=== PATIENT | male | born 1950 | race American Indian/Alaskan Native ===

== ENCOUNTER 2017-01-24 09:24 | Observation (INO) | payer BC ==
--- NOTE | 2017-01-24 09:53 | ED PDOC ---
Arrival/HPI - General Chief Complaint: Chest Pain Time Seen by Provider: 01/24/17 09:27 Historian: Patient - History of Present Illness Narrative History of Present Illness (Text): 01/24/17 09:50 66yr old male presents today with left sided chest pain that started 1 hour prior to arrival. pt describes the pain as a dull ache that started after getting out of the shower. pt denies SOb. pt states the pain radiates from the left axilla to the anterior chest. no fever/chills. no cough. denies palpitations. denies dizziness or weakness. no headaches. no abdominal pain. no n/v/d. pt states pain as slightly improved but remains present currently. no other complaints. Time/Duration: 1 hour Symptom Onset: Sudden Symptom Course: Improving Quality: Aching, Dullness Severity Level: 5 Past Medical History - Provider Review Nursing Documentation Reviewed: Yes - Travel History Have you recently traveled outside [place] w/in the past 3 mons?: No - Infectious Disease Hx of Infectious Diseases: None - Pulmonary Hx Respiratory Disorders: No - Neurological Hx Neurological Disorder: No - Endocrine/Metabolic Hx Endocrine Disorders: No - Hematological/Oncological Hx Blood Disorders: No - Psychiatric Hx Substance Use: No - Anesthesia Hx Anesthesia: Yes Hx Anesthesia Reactions: No Hx Malignant Hyperthermia: No Family/Social History - Physician Review Nursing Documentation Reviewed: Yes Family/Social History: Unknown Family HX Smoking Status: Never Smoked Hx Alcohol Use: Yes (beer) Hx Substance Use: No Allergies/Home Meds Allergies/Adverse Reactions: Allergies No Known Allergies Allergy (Verified 01/24/17 09:48) Home Medications: Home Meds Medication Instructions Recorded Confirmed No Known Home Med 01/24/17 01/24/17 Review of Systems - Review of Systems Constitutional: absent: Fatigue, Fevers Eyes: absent: Vision Changes, Photophobia, Eye Pain Respiratory: absent: SOB, Cough Cardiovascular: Chest Pain. absent: Palpitations, Syncope Gastrointestinal: absent: Abdominal Pain, Nausea, Vomiting Genitourinary Male: absent: Dysuria Musculoskeletal: absent: Arthralgias Skin: absent: Rash, Pruritis Neurological: absent: Headache, Dizziness Endocrine: absent: Diaphoresis Psychiatric: absent: Anxiety, Depression Physical Exam Vital Signs Reviewed: Yes Vital Signs Temp Pulse Resp BP Pulse Ox 01/24/17 13:27 76 200/116 H 01/24/17 13:17 51 L 18 173/90 H 01/24/17 10:57 51 L 17 173/90 H 98 01/24/17 09:39 98.2 F 63 17 184/97 H 97 Temperature: Afebrile Blood Pressure: Hypertensive Pulse: Regular Respiratory Rate: Normal Appearance: Positive for: Well-Appearing, Non-Toxic, Comfortable Pain Distress: None Mental Status: Positive for: Alert and Oriented X 3 - Systems Exam Head: Present: Atraumatic Mouth: Present: Moist Mucous Membranes Neck: Present: Normal Range of Motion Respiratory/Chest: Present: Clear to Auscultation, Good Air Exchange. No: Respiratory Distress, Accessory Muscle Use Cardiovascular: Present: Regular Rate and Rhythm, Normal S1, S2. No: Tachycardic Abdomen: No: Tenderness, Distention, Rebound, Guarding Back: Present: Normal Inspection Upper Extremity: Present: Normal ROM Lower Extremity: Present: Normal ROM Neurological: Present: GCS=15 Skin: Present: Warm, Dry, Normal Color. No: Rashes Psychiatric: Present: Alert, Oriented x 3 Medical Decision Making ED Course and Treatment: 01/24/17 09:55 pt with chest pain ; hypertensive on initial vitals. cbc; wnl cmp; wnl trop: wnl ekg; NSR at 65b/m no st elevations, normal axis, normal intervals; reviewed by dr. lizama. cxr: FINDINGS: LUNGS: No active pulmonary disease. PLEURA: A mammilated right hemidiaphragm is appreciated. No significant pleural effusion identified, no pneumothorax apparent. CARDIOVASCULAR: Probable frontal magnification of the cardiac silhouette. Mild cardiomegaly is not completely excluded. OSSEOUS STRUCTURES: No significant abnormalities. VISUALIZED UPPER ABDOMEN: Normal. OTHER FINDINGS: None. IMPRESSION: No acute pulmonary disease identified. Probable technical magnification of the cardiac silhouette. Clinically correlate further. No pulmonary vascular derangement. asa 325mg po nitro past applied tylenol PO pt reassessment; pt feeling better after medications; remains hypertensive without prior hx of HTN. case discussed with Dr. busch will Admit observational status to Tele for chest pain r/o acs. case discussed with resident dr vance impression; chest pain Admit observational status to tele; Dr. busch 01/24/17 14:06 - Lab Interpretations Lab Results: 01/24/17 09:40 01/24/17 09:40 Lab Results 01/24/17 10:40: Urine Color Yellow, Urine Appearance Clear, Urine pH 7.5, Ur Specific [place] 1.010, Urine Protein Negative, Urine Glucose (UA) Negative, Urine Ketones Negative, Urine Blood Negative, Urine Nitrate Negative, Urine Bilirubin Negative, Urine Urobilinogen 0.2, Ur Leukocyte Esterase Negative 01/24/17 09:40: Triglycerides 98, Cholesterol 152, LDL Cholesterol Direct 92, HDL Cholesterol 29 01/24/17 09:40: PT 12.4, INR 1.12 H, APTT 27.7 01/24/17 09:40: Sodium 141, Potassium 4.1, Chloride 104, Carbon Dioxide 29, Anion Gap 12, BUN 17, Creatinine 1.1, Est GFR ( Amer) > 60, Est GFR (Non- Af Amer) > 60, Random Glucose 101, Calcium 9.3, Magnesium 2.1, Total Bilirubin 0.8, AST 37, ALT 36, Alkaline Phosphatase 47, Lactate Dehydrogenase 525, Total Creatine Kinase 305 H, CK-MB (CK-2) 3.2, CK-MB (CK-2) % Cancelled, Troponin I < 0.01, Total Protein 7.5, Albumin 4.1, Globulin 3.4, Albumin/Globulin Ratio 1.2 01/24/17 09:40: WBC 4.6, RBC 4.31, Hgb 14.4, Hct 40.5 L, MCV 94.0, MCH 33.4, MCHC 35.6, RDW 12.8, Plt Count 185, MPV 9.4, Gran % 40.2 L, Lymph % (Auto) 46.2 H, [place] % (Auto) 9.0 H, Eos % (Auto) 4.4, Baso % (Auto) 0.2, Gran # 1.84, Lymph # 2.1, [place] # 0.4, Eos # 0.2, Baso # 0.01 - RAD Interpretation Radiology Orders: 01/24/17 09:36 CHEST PORTABLE [RAD] Stat - Medication Orders Current Medication Orders: Aspirin (Aspirin Chewable) 81 mg PO DAILY [facility] Atorvastatin Calcium (Lipitor) 40 mg PO DIN [facility] Enoxaparin Sodium (Lovenox) 40 mg SC DAILY [facility] PRN Reason: Protocol Losartan Potassium (Cozaar) 50 mg PO DAILY [facility] Last Admin: 01/24/17 13:27 Dose: 50 mg MAR Pulse and Blood Pressure Document 01/24/17 13:27 IT (Rec: 01/24/17 13:27 IT [id number]) Pulse Pulse Rate (60-90 beats/min) 76 Blood Pressure Blood Pressure (100/60-150/90 mm Hg) 200/116 Nitroglycerin (Nitro-Bid 2% Oint) 0 ea TOP Q6 SE Pantoprazole Sodium (Protonix Inj) 40 mg IVP DAILY SE Discontinued Medications Acetaminophen (Tylenol 325mg Tab) 975 mg PO STAT STA Stop: 01/24/17 12:08 Last Admin: 01/24/17 12:25 Dose: 975 mg MAR Pain/Vitals Document 01/24/17 12:25 IT (Rec: 01/24/17 12:26 IT [id number]) Pain Reassessment Is This A Pain ReAssessment? No Sleep Is patient sleeping during reassessment? 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 Ulcer: No History Surgical Site Infection Following: None - Disposition Have Diagnosis and Disposition been Completed?: Yes Diagnosis: Chest pain Disposition: HOSPITALIZED Disposition Time: 12:15 Patient Plan: Observation Patient Problems: Current Active Problems Problem Status Onset Chest pain Acute Condition: FAIR
[2017-01-24 09:54] LABS: BASO # 0.01 K/mm3 (0.0-2.0); BASO % 0.2 % (0.0-3.0); EOS # 0.2 (0.0-0.7); EOS % 4.4 % (1.5-5.0); GRAN # 1.84 (1.4-6.5); GRAN % 40.2 % (50.0-68.0); HEMATOCRIT 40.5 % (42.0-52.0); LYMPH # 2.1 (1.2-3.4); LYMPH % 46.2 % (22.0-35.0); MEAN CORPUSCULAR HEMOGLOBIN 33.4 pg (25.0-35.0); MEAN CORPUSCULAR HGB CONC 35.6 g/dl (31.0-37.0); MEAN PLATELET VOLUME 9.4 fl (7.0-11.0); MONO # 0.4 (0.1-0.6); RED CELL DISTRIBUTION WIDTH 12.8 % (11.5-14.5); WHITE BLOOD COUNT 4.6 10^3/ul (4.5-11.0)
[2017-01-24 10:01] LABS: ALB/GLOB RATIO 1.2 (1.1-1.8); ALKALINE PHOSPHATASE 47 U/L (38-126); ALT/SGPT 36 U/L (7-56); AST/SGOT 37 U/L (17-59); BILIRUBIN,TOTAL 0.8 mg/dL (0.2-1.3); BLOOD UREA NITROGEN 17 mg/dL (7-21); CALCIUM 9.3 mg/dL (8.4-10.5); CARBON DIOXIDE 29 mmol/L (21-33); CHLORIDE 104 mmol/L (98-107); GFR AFRICAN-AMERICAN > 60; GLUCOSE,RANDOM 101 mg/dL (70-110); MAGNESIUM 2.1 mg/dL (1.7-2.2); POTASSIUM 4.1 mmol/L (3.6-5.0); SODIUM 141 mmol/L (132-148); TOTAL PROTEIN 7.5 g/dL (5.8-8.3)
[2017-01-24 10:18] LABS: TROPONIN I < 0.01 ng/mL
[2017-01-24 10:27] LABS: INR 1.12 (0.93-1.08); PARTIAL THROMBOPLASTIN TIME 27.7 Seconds (25.1-36.5)
--- NOTE | 2017-01-24 10:53 | RAD ---
HISTORY: chest pain COMPARISON: No prior. FINDINGS: LUNGS: No active pulmonary disease. PLEURA: A mammilated right hemidiaphragm is appreciated. No significant pleural effusion identified, no pneumothorax apparent. CARDIOVASCULAR: Probable frontal magnification of the cardiac silhouette. Mild cardiomegaly is not completely excluded. OSSEOUS STRUCTURES: No significant abnormalities. VISUALIZED UPPER ABDOMEN: Normal. OTHER FINDINGS: None. IMPRESSION: No acute pulmonary disease identified. Probable technical magnification of the cardiac silhouette. Clinically correlate further. No pulmonary vascular derangement.
[2017-01-24 11:03] LABS: PH,URINE 7.5 (4.7-8.0); URINE APPEARANCE CLEAR (CLEAR); URINE BILIRUBIN NEGATIVE (NEGATIVE); URINE BLOOD NEGATIVE (NEGATIVE); URINE COLOR YELLOW (YELLOW); URINE GLUCOSE (UA) NEGATIVE (NEGATIVE); URINE KETONE NEGATIVE (NEGATIVE); URINE LEUKOCYTE ESTERASE NEGATIVE Leu/uL (NEGATIVE); URINE PROTEIN NEGATIVE mg/dL (<30 mg/dL); URINE UROBILINOGEN 0.2 E.U./dL (<1 E.U./dL)
[2017-01-24] MEDS ORDERED: Nitroglycerin 2% Ointment Foilpak UD TOP STA (12:06)
--- NOTE | 2017-01-24 13:20 | CP.PCM.HP ---
<Tracee Mccoy - Last Filed: 01/24/17 15:35> History of Present Illness - History of Present Illness History of Present Illness: PGY-2 H&P 66 year old male presents today with left sided chest pain that started this morning. Patient describes the pain as a constant, dull ache that started after getting out of the shower. Its located at the left axilla and radiates to the anterior chest and to the epigastric area. patient denies SOB, fevers, chills, diaphoresis. The pain lasted for about 30 minutes before he decided to come to the ED. He states he took an asa. He denies previous episodes. He denies cough, palpitations, dizziness, weakness, headaches, n&v. Patient states that he does get frequent headaches about multiple time per week, he usually takes asa. No other complaints. PMH: Denies PSH: bilateral inguinal hernia repair social history: former smoker quit 23 yo, occasional alcohol use, denies illicit drugs family history: brother- heart transplant, brother- lymphoma allergy: NKDA Home meds: denies Present on Admission - Present on Admission Any Indicators Present on Admission: No Review of Systems - Constitutional Constitutional: Headache. absent: Chills, Fatigue, Fever, Lethargy, Weakness - EENT Eyes: absent: Change in Vision Nose/Mouth/Throat: absent: Nasal Congestion, Nasal Discharge, Sore Throat - Cardiovascular Cardiovascular: Chest Pain. absent: Diaphoresis, Dyspnea, Leg Edema, Palpitations, Pedal Edema, Syncope - Respiratory Respiratory: absent: Cough, Dyspnea, Hemoptysis, Wheezing - Gastrointestinal Gastrointestinal: Abdominal Pain (epigastric). absent: Constipation, Diarrhea, Nausea, Vomiting - Genitourinary Genitourinary: absent: Difficulty Urinating, Dysuria, Hematuria - Musculoskeletal Musculoskeletal: absent: Arthralgias, Back Pain, Myalgias, Neck Pain, Numbness, Tingling - Integumentary Integumentary: absent: Pruritus, Rash, Skin Pain, Skin Ulcer, Sores, Wounds - Neurological Neurological: absent: Dizziness, Numbness, Headaches, Syncope, Weakness - Hematologic/Lymphatic Hematologic: absent: Easy Bleeding, Easy Bruising Past Patient History - Infectious Disease Hx of Infectious Diseases: None - Past Social History Smoking Status: Never Smoked - PULMONARY Hx Respiratory Disorders: No - NEUROLOGICAL Hx Neurological Disorder: No - ENDOCRINE/METABOLIC Hx Endocrine Disorders: No - HEMATOLOGICAL/ONCOLOGICAL Hx Blood Disorders: No - PSYCHIATRIC Hx Substance Use: No - SURGICAL HISTORY Hx Herniorrhaphy: Yes - ANESTHESIA Hx Anesthesia: Yes Hx Anesthesia Reactions: No Hx Malignant Hyperthermia: No Meds Allergies/Adverse Reactions: Allergies Allergy/AdvReac Type Severity Reaction Status Date / Time No Known Allergies Allergy Verified 01/24/17 09:48 Physical Exam - Constitutional Appears: Well, No Acute Distress - Head Exam Head Exam: ATRAUMATIC, NORMAL INSPECTION, NORMOCEPHALIC - Eye Exam Eye Exam: EOMI, Normal appearance - ENT Exam ENT Exam: Mucous Membranes Moist - Respiratory Exam Respiratory Exam: Clear to Auscultation Bilateral, NORMAL BREATHING PATTERN. absent: Rales, Rhonchi, Wheezes, Respiratory Distress, Stridor - Cardiovascular Exam Cardiovascular Exam: REGULAR RHYTHM, +S1, +S2. absent: Tachycardia, Diastolic murmur, Systolic Murmur - GI/Abdominal Exam GI & Abdominal Exam: Normal Bowel Sounds, Soft. absent: Distended, Firm, Guarding, Tenderness - Extremities Exam Extremities exam: Positive for: normal inspection. Negative for: pedal edema, tenderness - Back Exam Back exam: NORMAL INSPECTION - Neurological Exam Neurological exam: Alert, Oriented x3 - Skin Skin Exam: Dry, Intact, Normal Color, Warm Results - Vital Signs Recent Vital Signs: Last Vital Signs Temp 98.2 F 01/24/17 09:39 Pulse 51 L 01/24/17 10:57 Resp 17 01/24/17 10:57 BP 173/90 H 01/24/17 10:57 Pulse Ox 98 01/24/17 10:57 - Labs Result Diagrams: 01/24/17 09:40 01/24/17 09:40 Assessment & Plan - Assessment and Plan (Free Text) Assessment: 66 year old male presents today with left sided chest pain found to be hypertensive in ED. Plan: 1. chest pain - r/o ACS - trops negative times 1, trend trop - received asa and topical nitroglycerin in ED - urine drug screen - lipid panel - TSH, T4, T3 - repeat EKG - Echo - asa 81mg daily - lipior 40 daily - cardiology consulted 2. uncontrolled HTN - nitroglycerin - cozaar 50 daily - continue to monitor 3. history of frequent headaches - possible due to elevated BP - CT head prophlaxis DVT- lovenox GI- protonix <Erik Baltazar U - Last Filed: 02/16/17 10:59> Results - Vital Signs Recent Vital Signs: Last Vital Signs Temp 97.5 F L 01/25/17 12:00 Pulse 47 L 01/25/17 13:09 Resp 20 01/25/17 12:00 BP 180/100 H 01/25/17 13:09 Pulse Ox 99 01/25/17 05:55 - Labs Result Diagrams: 01/25/17 05:30 01/25/17 05:30 Attending/Attestation - Attestation I have personally seen and examined this patient.: Yes I have fully participated in the care of the patient.: Yes I have reviewed all pertinent clinical information: Yes Notes (Text): Please see my dictated notes.
[2017-01-24 13:21] VITALS: BMI 27.1
[2017-01-24 13:44] LABS: CHOLESTEROL 152 mg/dL (130-200)
[2017-01-24 14:08] LABS: T4 6.8 ug/dL (5.5-11.0)
[2017-01-24 14:22] LABS: T3 1.3 ng/mL (0.97-1.69); THYROID STIMULATING HORMONE 1.7 mIU/mL (0.46-4.68)
--- NOTE | 2017-01-24 14:24 | CT ---
PROCEDURE: CT HEAD WITHOUT CONTRAST. HISTORY: headaches COMPARISON: Head CT without contrast 01/06/2016. TECHNIQUE: Axial computed tomography images were obtained through the head/brain without intravenous contrast. Radiation dose: Total exam DLP = 775.01 mGy-cm. This CT exam was performed using one or more of the following dose reduction techniques: Automated exposure control, adjustment of the mA and/or kV according to patient size, and/or use of iterative reconstruction technique. FINDINGS: HEMORRHAGE: No intracranial hemorrhage. BRAIN: Limited chronic microangiopathy is reiterated in the periventricular spaces. No significant old changes appreciated in the supra or infratentorial parenchyma including throughout the brainstem. Corticomedullary differentiation is well delete preserved. VENTRICLES: Unremarkable. No hydrocephalus. CALVARIUM: Unremarkable. PARANASAL SINUSES: The visualized right maxillary sinus completely opacified in the interval. MASTOID AIR CELLS: Unremarkable as visualized. No inflammatory changes. OTHER FINDINGS: None. IMPRESSION: Stable minimal chronic microangiopathy. No definite acute intracranial findings by standard CT criteria. Follow-up CT or MRI are available if clinically warranted. Prominent right maxillary sinusitis.
[2017-01-24] MEDS: Enoxaparin 40 mg Syringe SC SCH (15:25)
[2017-01-24 16:15] LABS: TROPONIN I 0.02 ng/mL
[2017-01-24] MEDS: Nitroglycerin 2% Ointment Foilpak UD TOP SCH (18:14)
[2017-01-24] MEDS ORDERED: Nitroglycerin 2% Ointment Foilpak UD TOP SCH (19:00)
[2017-01-24 21:48] LABS: TROPONIN I 0.03 ng/mL
[2017-01-25 00:59] LABS: TROPONIN I 0.02 ng/mL
[2017-01-25] MEDS: Nitroglycerin 2% Ointment Foilpak UD TOP SCH ×4 (01:23→11:22)
[2017-01-25 01:30] VITALS: RESP 20; O2SAT 99
--- NOTE | 2017-01-25 02:18 | HP ---
HISTORY OF PRESENT ILLNESS: The patient is a 66-year-old male presented with less than 12 hours complaint of left-sided chest pain, left axillary pain, started couple of hours before the patient came to the ER. The patient stated that the symptoms started while he was taking a shower associated with some burping but with persistent pain, so the patient came to the emergency room for evaluation. Pain scale was described as 4-5/10 to me, but according to the ER triage it was 7/10. The patient was seen by the physician credentialing assistant in the emergency room. The patient described the pain as heaviness,dull ache. It radiated to the left axilla and to the anterior left chest. REVIEW OF SYSTEMS: A 13 system review is as above. CODE STATUS: Full code. LIVING WILL ADVANCE DIRECTIVE: None. ALLERGIES: None. HEIGHT: 6 feet. WEIGHT: 200. BMI: 27. HOME MEDICATIONS: None. SOCIAL HISTORY: Denies alcohol dependence. Denies smoking. Denies drug use. Denies communicable transmissible disease. SOCIAL HISTORY: Only positive for beer drinking. OCCUPATIONAL HISTORY. 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 PAST MEDICAL HISTORY: The patient denies any history of cerebral infarct, denies any history of coronary artery disease, denies any history of myocardial infarction, denies any history of surgeries. The patient does admit to beer drinking. PAST MEDICAL HISTORY: According to the [facility] data; the patient has history of inguinal hernia surgery in 2000, history of degenerative joint disease, history of cervicalgia, history of diverticulosis of the colon on colonoscopy done in October 2015, history of colonoscopy, history of questionable rectal bleeding, history of diverticulosis of the colon, history of colonoscopy, and history of inguinal herniorrhaphy by Dr. Cheung. PHYSICAL EXAMINATION: VITAL SIGNS: Initially from the emergency room till now; T-max is afebrile; heart rate 63, 51, 76, 93 and 52 beats per minute; blood pressure 184/79, 173/90, 200/116, 166/93 and 157/84; respiration 17 to 18; O2 sat 98%-100%. GENERAL: The patient was seen lying in the bed. HEENT: Head: Normocephalic, atraumatic. HEENT examination shows pink conjunctivae. Anicteric sclerae. No oropharyngeal lesion. NECK: No neck rigidity. CHEST: Symmetrical. LUNG: Shows no rales, crackles or wheezing. CARDIOVASCULAR: S1 and S2. ABDOMEN: Soft. Positive bowel sound. GENITALIA: Male. RECTAL: Deferred. EXTREMITIES: Shows no pitting edema, no calf tenderness, no Homans sign. NEUROLOGICALLY: The patient is alert, awake, oriented x3. Cranial nerves II through XII intact. GAIT: Not tested. Motor strength is 5/5 upper and lower extremities. VASCULAR: Palpable pulses. DIAGNOSTICS: WBC 4.6, hemoglobin and hematocrit 14.4 and 40.0, platelets 185. PT and PTT 12.4 and 27.7. Sodium 141, potassium 4.1, chloride 104, CO2 of 29, anion gap 12, BUN 17, creatinine 1.1, GFR greater than 60, glucose 101, calcium 9.3, magnesium 2.1. LFTs are normal. CPK 305. Troponin 0.01, cholesterol 152, LDL 92, HDL 29, TSH 1.70, T4 is 6.8. Urinalysis; pH of 7.50, specific gravity 1.01, negative protein, negative glucose, negative blood, negative urobilinogen, urine drug screen negative. The patient's chest x-ray was done in the emergency room. The patient's chest x-ray was done in the emergency room, questionable cardiomegaly noted and questionable mammillated right hemidiaphragm noted. CT head was done, which shows microangiopathy of the brain in the periventricular white matter. Right maxillary sinusitis noted. EKG shows sinus rhythm, ST changes and T-wave abnormality, sinus rhythm, sinus bradycardia, flattening of the T-wave in IV and V and lead II noted. The patient was seen in the emergency room by the ER physician credentialing assistant, the patient was given aspirin. The patient was given Tylenol. The patient was given Tylenol. The patient was given nitro paste 1 inch and aspirin 325 and the patient was advised to be admitted. CURRENT MEDICATIONS: Ecotrin 325 mg given in the ER. The patient will be started on Ecotrin 81 p.o. daily, Cozaar 50 mg daily, Lipitor 40 mg now and daily, Lovenox 40 mg subcu now and daily, nitro paste 1 inch q.6 hours, Protonix 40 mg daily. IMPRESSION: 1. Left-sided chest pain, dull ache, nonrelieving. 2. Sinus bradycardia. 3. Uncontrolled hypertension. 4. Headache, etiology undetermined. 5. Lymphocytosis, etiology undetermined. 6. Incidental lymphocytosis. 7. Elevated CPK, etiology undetermined. 8. Hypercholesterolemia with elevated LDL and decreased HDL. 9. Sinus bradycardia with nonspecific ST-T changes. 10. Lateral wall questionable ST-T changes. 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 12. Mild cardiomegaly. 13. Microangiopathy of the periventricular spaces. 14. Right maxillary sinusitis. 15. Hypertension. 16. History of frequent headache, etiology undetermined. PLAN: At this time, the patient has been admitted to telemetry observation, serial cardiac enzymes, repeat labs, CBC ordered. Cardiology consultation ordered. MRI of the brain has been ordered because of abnormal CAT scan. Repeat EKG ordered. Echo with Doppler ordered. Heart healthy diet ordered, out of bed ordered. All of the above the patient's condition, diagnoses, all details discussed with the patient. All questions and concerns answered to his satisfaction which he acknowledged and understand. I have explained to the patient about the details of his medical condition in very clear layman's language. The patient does understand need for further diagnostic therapeutic interventions which will be required. The patient also understand need for further cardiac testing and diagnostic therapeutic intervention which is required which has been explained to the patient in layman's language. All questions concerned answered. At present, the patient was seen and admitted to telemetry. Dictated and electronically signed, not read. Erik Baltazar MD
[2017-01-25 06:17] LABS: BASO # 0.02 K/mm3 (0.0-2.0); BASO % 0.4 % (0.0-3.0); EOS # 0.3 (0.0-0.7); EOS % 5.1 % (1.5-5.0); GRAN # 1.84 (1.4-6.5); GRAN % 37.7 % (50.0-68.0); LYMPH # 2.4 (1.2-3.4); MEAN CELL VOLUME 94.8 fl (80.0-105.0); MEAN CORPUSCULAR HEMOGLOBIN 32.7 pg (25.0-35.0); MEAN CORPUSCULAR HGB CONC 34.5 g/dl (31.0-37.0); MEAN PLATELET VOLUME 9.6 fl (7.0-11.0); MONO # 0.4 (0.1-0.6); MONO % 7.8 % (1.0-6.0); WHITE BLOOD COUNT 4.9 10^3/ul (4.5-11.0)
[2017-01-25 06:38] LABS: ALB/GLOB RATIO 1.2 (1.1-1.8); ALKALINE PHOSPHATASE 50 U/L (38-126); ALT/SGPT 42 U/L (7-56); AST/SGOT 34 U/L (17-59); BILIRUBIN,DIRECT 0.3 mg/dL (0.0-0.4); BILIRUBIN,TOTAL 0.7 mg/dL (0.2-1.3); BLOOD UREA NITROGEN 17 mg/dL (7-21); CALCIUM 9.1 mg/dL (8.4-10.5); CARBON DIOXIDE 32 mmol/L (21-33); CHLORIDE 104 mmol/L (95-110); GFR AFRICAN-AMERICAN > 60; GLUCOSE,RANDOM 94 mg/dL (70-110); MAGNESIUM 2.2 mg/dL (1.7-2.2); POTASSIUM 4.3 mmol/L (3.6-5.0); SODIUM 142 mmol/L (132-148); TOTAL PROTEIN 7.3 g/dL (5.8-8.3)
--- NOTE | 2017-01-25 07:50 | CP.PCM.PN ---
<Tracee Mccoy - Last Filed: 01/25/17 11:35> Subjective - Date & Time of Evaluation Date of Evaluation: 01/25/17 Time of Evaluation: 07:46 - Subjective Subjective: PGY-2 progress note Patient seen and examined at bedside. No acute distress. Patient states that overall he is feeling better. Patient denies any chest pain, shortness of breath. He states that he does have a headache. He denies abd pain, n&v, urinary symptoms. Objective - Vital Signs/Intake and Output Vital Signs (last 24 hours): Temp Pulse Resp BP Pulse Ox 97.7 F 51 L 20 151/94 H 99 01/25/17 05:55 01/25/17 05:55 01/25/17 05:55 01/25/17 05:55 01/25/17 05:55 Intake and Output: 01/25/17 01/25/17 06:59 18:59 Intake Total 140 Balance 140 - Medications Medications: Current Medications Aspirin (Aspirin Chewable) 81 mg PO DAILY [facility] Atorvastatin Calcium (Lipitor) 40 mg PO DIN [facility] Enoxaparin Sodium (Lovenox) 40 mg SC DAILY [facility] PRN Reason: Protocol Last Admin: 01/24/17 15:25 Dose: 40 mg Losartan Potassium (Cozaar) 50 mg PO DAILY [facility] Last Admin: 01/24/17 13:27 Dose: 50 mg Nitroglycerin (Nitro-Bid 2% Oint) 1 ea TOP Q6 [facility] Last Admin: 01/25/17 05:23 Dose: Not Given Pantoprazole Sodium (Protonix Inj) 40 mg IVP DAILY [facility] Last Admin: 01/24/17 15:26 Dose: 40 mg - Labs Labs: 01/25/17 05:30 01/25/17 05:30 PT 12.4 SECONDS (9.4-12.5) 01/24/17 09:40 INR 1.12 (0.93-1.08) H 01/24/17 09:40 APTT 27.7 Seconds (25.1-36.5) 01/24/17 09:40 - Constitutional Appears: Well, No Acute Distress - Head Exam Head Exam: ATRAUMATIC, NORMAL INSPECTION, NORMOCEPHALIC - Eye Exam Eye Exam: EOMI, Normal appearance - ENT Exam ENT Exam: Mucous Membranes Moist - Respiratory Exam Respiratory Exam: Clear to Ausculation Bilateral, NORMAL BREATHING PATTERN. absent: Rhonchi, Wheezes, Respiratory Distress - Cardiovascular Exam Cardiovascular Exam: REGULAR RHYTHM, +S1, +S2. absent: Tachycardia, Murmur - GI/Abdominal Exam GI & Abdominal Exam: Soft, Normal Bowel Sounds. absent: Distended, Firm, Guarding, Tenderness - Extremities Exam Extremities Exam: Normal Inspection. absent: Pedal Edema, Tenderness - Neurological Exam Neurological Exam: Alert, Awake, Oriented x3 - Skin Skin Exam: Dry, Intact, Normal Color, Warm Assessment and Plan - Assessment and Plan (Free Text) Assessment: 66 year old male presents today with left sided chest pain found to be hypertensive in ED. Plan: 1. chest pain - r/o ACS - improved - trops negative times 3 - received asa and topical nitroglycerin in ED - urine drug screen is negative - lipid panel within normal limits - TSH, T4, T3 within normal limits - Echo pending - asa 81mg daily - lipior 40 daily - cardiology consulted 2. uncontrolled HTN - nitroglycerin patch - cozaar 50 daily - continue to monitor 3. history of frequent headaches - possible due to elevated BP - CT head : stable minimal chronic microangiopathy, right maxillary sinusitis - MRI pending prophlaxis DVT- lovenox GI- protonix <Erik Baltazar U - Last Filed: 02/16/17 11:00> Objective - Vital Signs/Intake and Output Vital Signs (last 24 hours): Temp Pulse Resp BP Pulse Ox 97.5 F L 47 L 20 180/100 H 99 01/25/17 12:00 01/25/17 13:09 01/25/17 12:00 01/25/17 13:09 01/25/17 05:55 - Labs Labs: 01/25/17 05:30 01/25/17 05:30 PT 12.4 SECONDS (9.4-12.5) 01/24/17 09:40 INR 1.12 (0.93-1.08) H 01/24/17 09:40 APTT 27.7 Seconds (25.1-36.5) 01/24/17 09:40 Attending/Attestation - Attestation I have personally seen and examined this patient.: Yes I have fully participated in the care of the patient.: Yes I have reviewed all pertinent clinical information, including history, physical exam and plan: Yes Notes (Text): Please see my dictated notes.
[2017-01-25] MEDS: Enoxaparin 40 mg Syringe SC SCH (09:01)
--- NOTE | 2017-01-25 09:01 | CARD ---
APPROVED REPORT EKG Measurement Heart [id number] <Conclusion> Normal sinus rhythm with 1st degree AVB LAD NSSTW changes
--- NOTE | 2017-01-25 09:14 | CARD ---
APPROVED REPORT EKG Measurement Heart [id number] [place] [id number] <Conclusion> Sinus bradycardia with 1st degree AV block Nonspecific T wave abnormality LAD LVH by voltage Increased voltage c/w earlier ECG
[2017-01-25] MEDS ORDERED: Gadodiamide 287 MG/ML VIAL (15ML) IV ONE (10:31)
--- NOTE | 2017-01-25 11:28 | MRI ---
PROCEDURE: MRI BRAIN WITH AND WITHOUT CONTRAST HISTORY: ABN.CAT SCAN HEAD COMPARISON: CT of the head 01/24/2017 TECHNIQUE: Multiplanar, multisequence MR images of the brain were obtained with and without intravenous contrast enhancement. 15 cc of Omniscan FINDINGS: HEMORRHAGE: None DWI: No evidence of an acute or early subacute infarction. BRAIN PARENCHYMA: No mass,mass effect or edema. Mild chronic microvascular changes are seen ENHANCEMENT: No abnormal intracranial enhancement. VENTRICLES: Unremarkable. No hydrocephalus. CRANIUM: Unremarkable. ORBITS: Grossly unremarkable. PARANASAL SINUSES/MASTOIDS: There is opacification of the right maxillary sinus and the majority of the right-sided ethmoid air cells and right frontal sinus. There is obstruction of the right ostiomeatal unit. There is a bilateral garrett bullosa variation. The left-sided sinuses are clear. The sphenoid is clear VASCULAR SYSTEM: Skull base flow voids intact. OTHER FINDINGS: None . IMPRESSION: Right-sided sinusitis involving the maxillary frontal and ethmoid sinuses. No acute intracranial findings
[2017-01-25 12:01] VITALS: TEMP 97.5
[2017-01-25 13:11] VITALS: BP 180/100; PULSE 47
--- NOTE | 2017-01-25 17:56 | CARD ---
APPROVED REPORT EXAM: Two-dimensional and M-mode echocardiogram with Doppler and color Doppler. INDICATION Chest Pain 2D DIMENSIONS Left Atrium (2D)4.1 (1.6-4.0cm)IVSd1.5 (0.7-1.1cm) LVDd4.5 (3.9-5.9cm)PWd1.2 (0.7-1.1cm) LVDs3.2 (2.5-4.0cm)FS (%) 29.8 % LVEF (%)57.0 (>50%) M-Mode DIMENSIONS Aortic Root2.80 (2.2-3.7cm)Aortic Cusp Exc.1.80 (1.5-2.0cm) Aortic Valve AoV Peak Haraxtfj737.0cm/Sheyla Peak GR.5mmHg Mitral Valve MV E Gamnewge14.9cm/sMV A Jwjqixmy05.1cm/sE/A ratio0.8 TDI E/Lateral E'0.0E/Medial E'0.0 Tricuspid Valve TR Peak Lvccjyeg600cm/sRAP [id number] Peak Gr.20mmHg [id number] LEFT VENTRICLE The left ventricle is normal size. There is mild to moderate concentric left ventricular hypertrophy. The left ventricular function is normal. The left ventricular ejection fraction is within the normal range. There is normal LV segmental wall motion. Transmitral Doppler flow pattern is Grade I-abnormal relaxation pattern. RIGHT VENTRICLE The right ventricle is normal size. There is normal right ventricular wall thickness. The right ventricular systolic function is normal. ATRIA The left atrium is borderline dilated. The right atrium size is normal. AORTIC VALVE The aortic valve is thickened but opens well. No aortic regurgitation is present. There is no aortic valvular stenosis. MITRAL VALVE The mitral valve is mildly thickened. There is no mitral valve regurgitation noted. There is no mitral valve stenosis. TRICUSPID VALVE There is trace tricuspid regurgitation. GREAT VESSELS The aortic root is normal in size. The IVC is normal in size and collapses >50% with inspiration. <Conclusion> The left ventricle is normal size. There is mild to moderate concentric left ventricular hypertrophy. The left ventricular function is normal. The left ventricular ejection fraction is within the normal range. There is normal LV segmental wall motion. Transmitral Doppler flow pattern is Grade I-abnormal relaxation pattern.
--- NOTE | 2017-01-25 18:09 | CON ---
DATE: 01/25/2017 HISTORY OF PRESENT ILLNESS: The patient is a 66-year-old male who presented with an episode of chest pain last night. His symptoms have completely resolved. PAST MEDICAL HISTORY: Notable for hypertension. There is a question of hypercholesterolemia in the past. No previous cardiac history. No diabetes mellitus. SOCIAL HISTORY: The patient does not smoke. 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 REVIEW OF SYSTEMS: A 14-point review of systems was reviewed in detail. No cardiac symptomatology is noted. PHYSICAL EXAMINATION: VITAL SIGNS: Blood pressure is 190/100, heart rate is in the 50s. NECK: Negative JVD. LUNGS: Without rales. HEART: With S1 and S2. EXTREMITIES: Without edema. DIAGNOSTIC DATA: EKG shows sinus bradycardia with no acute changes. LABORATORY DATA: Troponins are negative x3. The cholesterol is 152 with a hemoglobin of 14.5. IMPRESSION: 1. Atypical chest pain. 2. No evidence for acute coronary syndrome. 3. Accelerated hypertension. 4. Questionable hypercholesterolemia. PLAN: Given these findings, if the patient's pressure does not improve with the ARB already administered, we will add clonidine. Once his pressure is under control, the patient can be discharged. We will arrange for an outpatient stress test. Chandler Stubbs MD
--- NOTE | 2017-01-25 22:05 | CARD ---
APPROVED REPORT EKG Measurement Heart [id number] [place] [id number] <Conclusion> Marked sinus bradycardia with 1st degree AV block Nonspecific T wave abnormality Abnormal ECG
--- NOTE | 2017-01-26 02:57 | DS ---
FINAL PROGRESS NOTE AND DISCHARGE SUMMARY LOCATION: The patient is seen in room 266, bed 2. SUBJECTIVE: The patient states that the chest pain has completely resolved. Overnight nurse's notes were reviewed. The patient slept overnight without any complaints except for some mild headache for which the patient was given medication. PHYSICAL EXAMINATION: VITAL SIGNS: T-max 98.5 to 97.9. Telemetry shows sinus rhythm, sinus bradycardia, heart rate in 50s. Blood pressure 173/90, 166/93, 157/84, 130/91, 130/72, 151/94 ,180/100 and 190/100. HEENT: Head: Normocephalic, atraumatic. HEENT examination shows pink conjunctivae. Anicteric sclerae. No oropharyngeal lesion. NECK: No neck rigidity. CHEST: Kyphosis. LUNGS: Shows no rales, crackles or wheezing. CARDIOVASCULAR: Shows S1 and S2, regular rhythm. Questionable soft systolic murmur, left sternal border, left second intercostal space, right second intercostal space. ABDOMEN: Soft. No abdominal tenderness noted. GENITALIA: Male. RECTAL: Deferred. EXTREMITY: Shows no pitting edema, no calf tenderness, no Homans' sign. NEUROLOGIC: The patient is alert, awake, oriented x3. GAIT: Independent. VASCULAR: Palpable pulses. DIAGNOSTICS: On 01/25, WBC 4.9, hemoglobin and hematocrit 14.5 and 42.0, platelets 177. Granulocytes are 40% and 38% which is slightly low. Lymphocytes are elevated at 46% and 49% which is high. ESR is 5. Sodium 142, potassium 4.3, chloride 104, CO2 of 32, anion gap 10, BUN 17, creatinine 1.2, GFR greater than 60, glucose 94, calcium 9.1, magnesium 2.2. LFTs are normal. CPK, troponin is 0.02. MRI of the brain was reviewed which was done. EKG was reviewed from today and compared with yesterday shows sinus bradycardia with first degree AV block, ST-T changes in the lateral leads. We are awaiting Cardiology evaluation at this time. Echo results are pending. IMPRESSION: 1. Chest pain, questionable etiology at present. 2. Uncontrolled diastolic and systolic hypertension. 3. Uncontrolled hypertension. 4. Sinus bradycardia with first degree AV block. 5. Uncontrolled systolic and diastolic hypertension. 6. Granulocytopenia and lymphocytosis, etiology undetermined. 7. Mildly elevated CPK. 8. Dyslipidemia with elevated LDL and decreased HDL. 9. Right maxillary frontal and ethmoid sinusitis. 10. Sinus bradycardia with first degree AV block, left axis deviation, hypertensive cardiovascular disease with left ventricular hypertrophy. 11. Nonspecific T-wave changes. 12. Chronic microvascular ischemic disease of the brain with microangiopathy. 13. Complete opacification of the right maxillary sinus and majority right ethmoid sinus and right frontal sinus with obstruction of the right ostiomeatal complex and bilateral garrett bullosa variation. 14. Status post echocardiogram, results pending. 15. Left ventricular ejection fraction of greater than 60%. 1. Left-sided chest pain, dull ache, nonrelieving. 2. Sinus bradycardia. 3. Uncontrolled hypertension. 4. Headache, etiology undetermined. 5. Lymphocytosis, etiology undetermined. 6. Incidental lymphocytosis. 7. Elevated CPK, etiology undetermined. 8. Hypercholesterolemia with elevated LDL and decreased HDL. 9. Sinus bradycardia with nonspecific ST-T changes. 10. Lateral wall questionable ST-T changes. 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 12. Mild cardiomegaly. 13. Microangiopathy of the periventricular spaces. 14. Right maxillary sinusitis. 15. Hypertension. 16. History of frequent headache, etiology undetermined. PLAN: At this time, the patient has been ordered flow cytometry. The patient has been updated about his medical diagnosis. The patient was given a stat dose of hydralazine 10 mg. The patient is on Ecotrin 81 mg daily, Cozaar 50 mg daily which will be increased to 100 mg daily starting today. Cozaar will be increased to 100 mg p.o. daily. The patient is on Lipitor 40 mg daily, Lovenox 40 mg subcu daily, nitro paste 1 inch q.6 hour, Protonix 40 mg daily. The patient is ordered repeat EKG and heart-healthy diet. At present, the patient will be considered for discharge once cleared by cardiology. The patient has been advised about the details of his medical condition. The patient has been advised and updated about her diagnostic data. The patient has been told about all the results of his test. The patient's all 3 sets of cardiac enzymes are negative. The patient will be considered for discharge after cleared by Cardiology after echo is done in is negative. DISCHARGE FOLLOWUP: With Dr. Baltazar within 1 week. DISCHARGE MEDICATIONS: As per updated ambulatory orders and new scripts which will be given to the patient upon discharge. The patient will be given new prescription upon discharge with copy of the diet. The patient has been updated and explained about his condition, diagnoses,need for close outpatient followup, need for further outpatient Cardiology testing. The patient has been advised to follow up with Dr. Stubbs within 1 week for evaluation of further cardiac workup. All the above was explained to the patient in layman's language. All questions concerned answered. The patient's discharge medications; 1. Augmentin 875 mg twice a day for 10-14 days. 2. Ecotrin 81 mg daily. 3. Lipitor 40 mg daily. 4. Cozaar 100 mg daily. 5. Hydralazine 10 mg twice a day. The patient is awaiting for cardiology evaluation and clearance and awaiting for the echocardiogram result. Time spent in the entire discharge process more than 45 minutes. Dictated and electronically signed, not read. Erik Baltazar MD MTDJanes
== END 2017-01-25 15:39 | disposition home or self-care (01) ==
LOC: ED 09:24 → ERH 12:26 → 2RNO 14:40
PROVIDERS: ADMIT Internal Medicine; ATTEND Internal Medicine
DX: R07.89 Other chest pain (principal); R00.1 Bradycardia, unspecified; R51 Headache; E78.00 Pure hypercholesterolemia, unspecified; I11.9 Hypertensive heart disease without heart failure; I44.0 Atrioventricular block, first degree; D72.820 Lymphocytosis (symptomatic); D70.9 Neutropenia, unspecified; J32.0 Chronic maxillary sinusitis; J32.2 Chronic ethmoidal sinusitis; M19.90 Unspecified osteoarthritis, unspecified site; E78.5 Hyperlipidemia, unspecified; Z87.891 Personal history of nicotine dependence; Z80.7 Family history of other malignant neoplasms of lymphoid, hematopoietic and related tissues
CPT/HCPCS: 36415; 70450; 70553; 71010; 80053; 80061; 81003; 82248; 82550; 82553; 83615; 83735; 84436; 84443; 84480; 84484; 85025; 85610; 85651; 85730; 93005; 93306; 96372; 96374; 96376; 99285; A9579; C9113; G0378; G0480; J1650

== ENCOUNTER 2017-07-06 09:33 | Emergency (ER) | payer BC ==
[2017-07-06 09:33] VITALS: BMI 27.1
[2017-07-06 10:41] VITALS: TEMP 98.7
[2017-07-06] MEDS ORDERED: DiphenhydrAMINE 50 mg/ml Inj IVP STA (12:21)
--- NOTE | 2017-07-06 12:36 | ED PDOC ---
Arrival/HPI - General Chief Complaint: Trauma Time Seen by Provider: 07/06/17 12:05 Historian: Patient - History of Present Illness Narrative History of Present Illness (Text): 07/06/17 12:26 A 66 year old male, whose past medical history includes hypertension ( noncompliant with hypertensive regimen) and migraine headaches, presents to the emergency department complaining of a frontal headache s/p head trauma 2 days ago. 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 Patient denies any loss of consciousness , changes in mental status or any neurological deficits at the time. Patient notes he developed a frontal headache the following day which has been present since. He describes the headache as being more severe and different in character compared to his usual migraines. Patient took 2 Aspirin, with mild relief. He reports 2 episodes of non-bilious non-bloody vomiting yesterday. Patient denies any other injuries, fever, chills, abdominal pain, chest pain, shortness of breath or any other complaints. Patient denies any shared symptoms with people that shared his food. Time/Duration: Other (head trauma x 2 days ago, symptoms x 1 day) Symptom Course: Unchanged Context: Work Past Medical History - Provider Review Nursing Documentation Reviewed: Yes - Travel History If Yes, travel location?: [place] - Infectious Disease Hx of Infectious Diseases: None - Cardiac Hx Cardiac Disorders: Yes Hx Hypertension: Yes - Pulmonary Hx Respiratory Disorders: No - Neurological Hx Neurological Disorder: No - HEENT Hx HEENT Disorder: No - Renal Hx Renal Disorder: No - Endocrine/Metabolic Hx Endocrine Disorders: No - Hematological/Oncological Hx Blood Disorders: No - Integumentary Hx Dermatological Disorder: No - Musculoskeletal/Rheumatological Hx Musculoskeletal Disorders: No Hx Falls: No - Gastrointestinal Hx Gastrointestinal Disorders: No - Genitourinary/Gynecological Hx Genitourinary Disorders: No - Psychiatric Hx Psychophysiologic Disorder: No Hx Substance Use: No - Anesthesia Hx Anesthesia: Yes Hx Anesthesia Reactions: No Hx Malignant Hyperthermia: No Family/Social History - Physician Review Nursing Documentation Reviewed: Yes Family/Social History: No Known Family HX Smoking Status: Never Smoked Hx Alcohol Use: Yes (beer) Hx Substance Use: No Allergies/Home Meds Allergies/Adverse Reactions: Allergies No Known Allergies Allergy (Verified 07/06/17 09:42) Review of Systems - Physician Review All systems were reviewed & negative as marked: Yes - Review of Systems Constitutional: absent: Fevers, Night Sweats Respiratory: absent: SOB Cardiovascular: absent: Chest Pain Gastrointestinal: Vomiting. absent: Abdominal Pain Neurological: Headache. absent: Focal Weakness Physical Exam Vital Signs Reviewed: Yes Vital Signs Temp Pulse Resp BP Pulse Ox 07/06/17 10:04 98.7 F 56 L 17 172/93 H 99 07/06/17 09:43 98.2 F 59 L 16 148/91 H 97 Temperature: Afebrile Blood Pressure: Hypertensive Pulse: Bradycardic Respiratory Rate: Normal Appearance: Positive for: Well-Appearing, Non-Toxic, Comfortable Pain Distress: None Mental Status: Positive for: Alert and Oriented X 3 - Systems Exam Head: Present: Atraumatic, Normocephalic Pupils: Present: PERRL Extroacular Muscles: Present: EOMI Conjunctiva: Present: Normal Mouth: Present: Moist Mucous Membranes Neck: Present: Normal Range of Motion Respiratory/Chest: Present: Clear to Auscultation, Good Air Exchange. No: Respiratory Distress, Accessory Muscle Use Cardiovascular: Present: Regular Rate and Rhythm, Normal S1, S2. No: Murmurs Abdomen: No: Tenderness, Distention, Peritoneal Signs Back: Present: Normal Inspection Upper Extremity: Present: Normal Inspection. No: Cyanosis, Edema Lower Extremity: Present: Normal Inspection. No: Edema Neurological: Present: GCS=15, CN II-XII Intact, Speech Normal, Motor Func Grossly Intact, Normal Sensory Function, Normal Cerebellar Funct, Gait Normal ( normal gait). No: Other (pronator drift) Skin: Present: Warm, Dry, Normal Color. No: Rashes Psychiatric: Present: Alert, Oriented x 3, Normal Insight, Normal Concentration Medical Decision Making ED Course and Treatment: 07/06/17 12:26 Impression: A 66 year old male with a persistent headache and 2 episodes of vomiting after head trauma 2 days ago Plan: -- Head CT -- Labs -- Tylenol, Benadryl and Reglan -- Reassess and disposition Progress Notes: Report Date : 07/06/2017 13:48:55 PROCEDURE: CT HEAD WITHOUT CONTRAST. Dictator : Kelsey Brian MD IMPRESSION: No acute intracranial abnormality. Chronic right maxillary and anterior ethmoid sinusitis. 07/06/17 15:01 feels better, labs/head ct wnl. Assessment- migraine headache w/ mild trauma. 07/06/17 15:04 antiHTNsive counseled , will f/u with PMD. - Lab Interpretations Lab Results: 07/06/17 12:50 07/06/17 12:50 Lab Results 07/06/17 12:50: Sodium 141, Potassium 4.5, Chloride 101, Carbon Dioxide 31, Anion Gap 13, BUN 18, Creatinine 1.2, Est GFR ( Amer) > 60, Est GFR (Non- Af Amer) > 60, Random Glucose 87, Calcium 10.2, Total Bilirubin 0.4, AST 45, ALT 46, Alkaline Phosphatase 48, Total Protein 8.0, Albumin 4.4, Globulin 3.5, Albumin/Globulin Ratio 1.2 07/06/17 12:50: PT 11.6, INR 1.01, APTT 27.0 07/06/17 12:50: WBC 5.6, RBC 4.58, Hgb 15.1, Hct 43.6, MCV 95.2, MCH 33.0, MCHC 34.6, RDW 13.1, Plt Count 204, MPV 9.8, Gran % 49.2 L, Lymph % (Auto) 43.0 H, [place] % (Auto) 6.0, Eos % (Auto) 1.4 L, Baso % (Auto) 0.4, Gran # 2.77, Lymph # ( Auto) 2.4, [place] # (Auto) 0.3, Eos # (Auto) 0.1, Baso # (Auto) 0.02 I have reviewed the lab results: Yes - RAD Interpretation Radiology Orders: 07/06/17 12:06 HEAD W/O CONTRAST [CT] Stat - Medication Orders Current Medication Orders: Discontinued Medications Acetaminophen (Tylenol 325mg Tab) 650 mg PO STAT STA Stop: 07/06/17 12:07 Last Admin: 07/06/17 12:44 Dose: 650 mg MAR Pain/Vitals Document 07/06/17 12:44 SF (Rec: 07/06/17 12:44 SF [facility] [place] Pain Reassessment Is This A Pain ReAssessment? Yes Sleep Is patient sleeping during reassessment? No Presence of Pain Presence of Pain Yes Diphenhydramine HCl (Benadryl) 25 mg IVP STAT STA Stop: 07/06/17 12:22 Last Admin: 07/06/17 12:45 Dose: 25 mg IVP Administration Document 07/06/17 12:45 SF (Rec: 07/06/17 12:45 SF [facility] [place]) Charges for Administration # of IVP Administrations 1 Metoclopramide HCl (Reglan) 20 mg IVP STAT STA Stop: 07/06/17 12:21 Last Admin: 07/06/17 12:44 Dose: 20 mg IVP Administration Document 07/06/17 12:44 SF (Rec: 07/06/17 12:44 SF [facility] [place]) Charges for Administration # of IVP Administrations 1 - Scribe Statement The provider has reviewed the documentation as recorded by the Elinaibtish Kelley Provider Scribe Attestation: All medical record entries made by the Scribe were at my direction and personally dictated by me. I have reviewed the chart and agree that the record accurately reflects my personal performance of the history, physical exam, medical decision making, and the department course for this patient. I have also personally directed, reviewed, and agree with the discharge instructions and disposition. Disposition/Present on Arrival - Present on Arrival Any Indicators Present on Arrival: No History of DVT/PE: No History of Uncontrolled Diabetes: No Urinary Catheter: No History of Decub. Ulcer: No History Surgical Site Infection Following: None - Disposition Have Diagnosis and Disposition been Completed?: Yes Diagnosis: Migraine Disposition: Transfer HUM[facility] Disposition Time: 15:01 Patient Plan: Discharge Condition: GOOD Discharge Instructions (ExitCare): Migraine Headaches in Adults Print Language: THAI Additional Instructions: please follow up with your regular medical doctor [id number] your elevated bp. Prescriptions: Acetaminophen/Butalbital/Caf [Fioricet] 1 tab PO Q8 PRN #16 tab PRN Reason: Headache Forms: [facility] (Albanian)
[2017-07-06 13:11] LABS: BASO # 0.02 K/mm3 (0.0-2.0); BASO % 0.4 % (0.0-3.0); EOS # 0.1 (0.0-0.7); EOS % 1.4 % (1.5-5.0); GRAN # 2.77 (1.4-6.5); GRAN % 49.2 % (50.0-68.0); HEMOGLOBIN 15.1 g/dL (14.0-18.0); LYMPH # 2.4 (1.2-3.4); MEAN CELL VOLUME 95.2 fl (80.0-105.0); MEAN CORPUSCULAR HGB CONC 34.6 g/dl (31.0-37.0); MEAN PLATELET VOLUME 9.8 fl (7.0-11.0); MONO # 0.3 (0.1-0.6); RBC 4.58 10^6/uL (3.5-6.1); RED CELL DISTRIBUTION WIDTH 13.1 % (11.5-14.5); WHITE BLOOD COUNT 5.6 10^3/ul (4.5-11.0)
[2017-07-06 13:17] LABS: ALB/GLOB RATIO 1.2 (1.1-1.8); ALBUMIN 4.4 g/dL (3.0-4.8); ALT/SGPT 46 U/L (7-56); AST/SGOT 45 U/L (17-59); BLOOD UREA NITROGEN 18 mg/dL (7-21); CALCIUM 10.2 mg/dL (8.4-10.5); GFR AFRICAN-AMERICAN > 60; GFR NON-AFRICAN AMERICAN > 60
[2017-07-06 13:29] LABS: INR 1.01 (0.93-1.08); PROTHROMBIN TIME 11.6 SECONDS (9.4-12.5)
--- NOTE | 2017-07-06 13:50 | CT ---
PROCEDURE: CT HEAD WITHOUT CONTRAST. HISTORY: Head injury COMPARISON: 01/24/2017. TECHNIQUE: Axial computed tomography images were obtained through the head/brain without intravenous contrast. Radiation dose: Total exam DLP = 995.01 mGy-cm. This CT exam was performed using one or more of the following dose reduction techniques: Automated exposure control, adjustment of the mA and/or kV according to patient size, and/or use of iterative reconstruction technique. FINDINGS: HEMORRHAGE: No intracranial hemorrhage. BRAIN: Haywood-white matter differentiation is preserved. There is no mass, mass effect or abnormal extra-axial fluid collection. There is no territorial infarction. VENTRICLES: The ventricles are normal in size, shape and configuration. CALVARIUM: There is no calvarial fracture or extracranial soft tissue swelling. PARANASAL SINUSES: Again seen is chronic right maxillary and anterior ethmoid sinusitis with obstruction of the ostiomeatal unit and widening of infundibula. MASTOID AIR CELLS: Predominantly clear. OTHER FINDINGS: None. IMPRESSION: No acute intracranial abnormality. Chronic right maxillary and anterior ethmoid sinusitis.
[2017-07-06 16:02] VITALS: BP 142/87; PULSE 62; RESP 18; O2SAT 100
== END 2017-07-06 15:30 | disposition short-term general hospital (02) ==
LOC: ED 09:33
DX: G43.909 Migraine, unspecified, not intractable, without status migrainosus (principal); I10 Essential (primary) hypertension; Z91.19 Patient's noncompliance with other medical treatment and regimen
CPT/HCPCS: 70450; 80053; 85025; 85610; 85730; 96374; 96375; 99285; J1200; J2765

== ENCOUNTER 2017-07-22 12:58 | Emergency (ER) | payer OTHER, BC ==
[2017-07-22 12:58] VITALS: BMI 27.1
[2017-07-22 13:10] VITALS: BP 138/72; PULSE 66; RESP 18; TEMP 97.9; O2SAT 95
[2017-07-22] MEDS ORDERED: Oxycodone/Acetaminophen 5/325 mg Tab PO STA (13:21)
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
--- NOTE | 2017-07-23 08:30 | CARD ---
APPROVED REPORT EKG Measurement Heart [id number] <Conclusion> Sinus bradycardia with 1st degree AV block Nonspecific T wave abnormality Abnormal ECG
== END 2017-07-22 18:29 | disposition home or self-care (01) ==
LOC: ED 12:58
DX: S16.1XXA Strain of muscle, fascia and tendon at neck level, initial encounter (principal); V43.52XA Car driver injured in collision with other type car in traffic accident, initial encounter; I10 Essential (primary) hypertension
CPT/HCPCS: 71046; 72125; 93005; 96372; 99284; J1885

== ENCOUNTER 2018-07-07 13:24 | Outpatient (CLI) | payer BC | END 2018-07-07 13:25 | disposition home or self-care (01) | LOC: RAD 13:24 ==